=== PATIENT | male | born 1975 | race Two or more races ===

== ENCOUNTER 2023-05-06 11:51 | Emergency (ER) | payer MEDICAID ==
[~2023-05-06] VITALS: Ht 175.3 cm; Wt 74.4 kg
[2023-05-06 12:35] VITALS: BP 123/68; PULSE 52; RESP 20; TEMP 98.2; O2SAT 98
[2023-05-06] MEDS: HYDROcodone-ACET 5/325MG TAB PO ONE (13:17)
[2023-05-06] MEDS ORDERED: TRAM50TA2 PO (13:27)
[2023-05-06] MEDS ORDERED: HYDR-4902 PO (13:31)
[2023-05-06] MEDS ORDERED: ACET-1080 PO (13:40)
== END 2023-05-06 13:46 | disposition home or self-care (01) ==
LOC: ER 11:51
DX: S62.351A Nondisplaced fracture of shaft of second metacarpal bone, left hand, initial encounter for closed fracture (principal); S62.353A Nondisplaced fracture of shaft of third metacarpal bone, left hand, initial encounter for closed fracture; S62.645A Nondisplaced fracture of proximal phalanx of left ring finger, initial encounter for closed fracture; W18.09XA Striking against other object with subsequent fall, initial encounter; Y93.89 Activity, other specified; Y92.89 Other specified places as the place of occurrence of the external cause; Y99.8 Other external cause status
CPT/HCPCS: 29125; 73130

== ENCOUNTER 2024-07-23 09:20 | Emergency (ER) | payer MEDICAID, OTHER ==
[~2024-07-23] VITALS: Ht 175.3 cm; Wt 70.0 kg
[~2024-07-23 09:20] MED LIST: ACET-1080 PO
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
[2024-07-23] MEDS: HYDROcodone-ACET 10/325MG TAB PO ONE (10:32)
--- NOTE | 2024-07-23 11:16 | DVH ---
PROCEDURE: Left tibia/ fibula radiographs. INDICATION: fall TECHNIQUE: 2 views of the left tibia/ fibula were obtained. COMPARISON: None FINDINGS: There is no evidence of fracture or dislocation. Joint spaces are maintained. The soft tis sues are unremarkable. IMPRESSION: 1. No fracture or dislocation.
--- NOTE | 2024-07-23 11:17 | DVH ---
PROCEDURE: Left hip radiographs. INDICATION: fall TECHNIQUE: Frontal and lateral views of the left hip were obtained. COMPARISON: None FINDINGS: There is no evidence of fracture or dislocation. Joint spaces are maintained. The soft tis sues are unremarkable. IMPRESSION: 1. No fracture or dislocation.
[2024-07-23] MEDS ORDERED: IBU600T PO (11:54)
[2024-07-23 12:12] VITALS: BP 102/55; PULSE 57; RESP 16; TEMP 98.7; O2SAT 99
== END 2024-07-23 12:15 | disposition home or self-care (01) ==
LOC: ER 09:20
DX: M25.552 Pain in left hip (principal); M25.522 Pain in left elbow; M79.605 Pain in left leg; F15.90 Other stimulant use, unspecified, uncomplicated; Z90.49 Acquired absence of other specified parts of digestive tract; Z98.890 Other specified postprocedural states; Z79.899 Other long term (current) drug therapy; V26.49XA Other motorcycle driver injured in collision with other nonmotor vehicle in traffic accident, initial encounter; Y93.I9 Activity, other involving external motion; Y92.410 Unspecified street and highway as the place of occurrence of the external cause; Y99.8 Other external cause status
CPT/HCPCS: 73502; 73590